=== PATIENT | male | born 1940 | race Caucasian/White ===

== ENCOUNTER → 2017-07-10 | Outpatient (CLI) | payer MEDICARE ==
[~2017-07-10] MED LIST: ASPI-496 PO; ATOR20TA9 PO; FLUT16SP NAS; FLUT50DI IH; HYDR-3138 PO; KRILL OIL PO; LEUP22.52 IM; LOSA25TA5 PO; METF500T4 PO; METO25TA35 PO; MULT-257 PO; POLY8.5P PO; SILO4CAP PO; TRAZ50TA18 PO; UBID1CAP24 PO; ZOLP5TAB6 PO; [UNRECOGNIZED DRUG - SUPPLY]
== END ==
LOC: STAR 09:28
PROVIDERS: ATTEND Urology
DX: Z02.9 Encounter for administrative examinations, unspecified (principal)

== ENCOUNTER 2017-07-15 08:00 | Emergency (ER) | payer MEDICARE ==
[~2017-07-15] VITALS: Ht 170.2 cm; Wt 74.5 kg
[2017-07-15 08:02] VITALS: BP 138/71
[2017-07-15 09:55] LABS: PATH.CAST-FLAG NOT PRESENT; SPERM-FLAG NOT PRESENT; SRC-FLAG NOT PRESENT; XTAL-FLAG NOT PRESENT; YLC-FLAG NOT PRESENT
== END 2017-07-15 10:30 | disposition home or self-care (01) ==
LOC: ED 08:34
DX: R31.0 Gross hematuria (principal); Z85.46 Personal history of malignant neoplasm of prostate
CPT/HCPCS: 81001; 87086; 99284

== ENCOUNTER 2018-07-08 09:04 | Emergency (ER) | payer MEDICARE ==
[~2018-07-08] VITALS: Ht 170.2 cm; Wt 73.3 kg
[~2018-07-08 09:04] MED LIST changes: -HYDR-3138 PO; +HYDR-3237 PO; -METF500T4 PO; +METF500T5 PO; +TRAZ-136 PO; -TRAZ50TA18 PO; -UBID1CAP24 PO; +UBID1CAP43 PO
[2018-07-08 10:07] LABS: BASOPHILS # (AUTO) 0.05 x10^3/uL (0-0.1); BASOPHILS % (AUTO) 1 % (0-1); EOSINOPHILS # (AUTO) 0.26 x10^3/uL (0-0.4); EOSINOPHILS % (AUTO) 3 % (1-7); LYMPHOCYTES # (AUTO) 1.57 x10^3/uL (1-3.4); LYMPHOCYTES % (AUTO) 17 % (22-44); MD NO; MEAN CORPUSCULAR HEMOGLOBIN 30.2 pg (27.5-34.5); MEAN CORPUSCULAR HGB CONC 33.2 g/dL (33.2-36.2); MEAN PLATELET VOLUME 8.6 fL (7.4-10.4); MONOCYTES # (AUTO) 0.57 x10^3/uL (0.2-0.8); MONOCYTES % (AUTO) 6 % (2-9); NEUTROPHILS # (AUTO) 6.83 x10^3/uL (1.8-6.8); NEUTROPHILS % (AUTO) 74 % (42-75); PLATELET COUNT 234 x10^3/uL (130-400); RED BLOOD COUNT 4.38 x10^6/uL (4.38-5.82); RED CELL DISTRIBUTION WIDTH 14.6 % (9.4-14.8)
[2018-07-08 10:14] LABS: INTERNATIONAL NORMALIZED RATIO 1.01 (0.93-1.1); PROTHROMBIN TIME 10.5 Seconds (9.6-11.5)
[2018-07-08 10:16] LABS: ALBUMIN 3.5 g/dL (3.4-5.0); ANION GAP 6 mmol/L (5-15); CALCIUM 8.7 mg/dL (8.5-10.1); CHLORIDE 108 mmol/L (98-107)
[2018-07-08 10:23] LABS: ALKALINE PHOSPHATASE 117 U/L (45-117); BILIRUBIN,TOTAL 0.5 mg/dL (0.2-1.0); CREATININE 1.39 mg/dL (0.7-1.3); TOTAL PROTEIN 7.3 g/dL (6.4-8.2); TROPONIN I < 0.015 ng/mL (0.000-0.045)
[2018-07-08 10:27] LABS: ALANINE AMINOTRANSFERASE 26 U/L (12-78)
[2018-07-08] MEDS ORDERED: METOPROLOL SUCCINATE 50 MG TAB.ER.24H PO ONE (12:00)
[2018-07-08 12:26] VITALS: BP 127/65
== END 2018-07-08 12:29 | disposition home or self-care (01) ==
LOC: ED 12:23
DX: I47.1 Supraventricular tachycardia (principal)
CPT/HCPCS: 36415; 71045; 80053; 84484; 85025; 85610; 85730; 93005; 99285

== ENCOUNTER 2018-08-05 18:54 | Inpatient (IN) | payer MEDICARE ==
[~2018-08-05] VITALS: Ht 170.2 cm; Wt 73.2 kg
[~2018-08-05 18:54] MED LIST changes: -LOSA25TA5 PO; +LOSA25TA6 PO; +METF500T17 PO; -METF500T5 PO
[2018-08-05 19:44] LABS: MEAN CORPUSCULAR HEMOGLOBIN 30.6 pg (27.5-34.5); MEAN CORPUSCULAR VOLUME 89.9 fL (81-97); MEAN PLATELET VOLUME 9.1 fL (7.4-10.4); PLATELET COUNT 203 x10^3/uL (130-400); RED BLOOD COUNT 4.83 x10^6/uL (4.38-5.82); RED CELL DISTRIBUTION WIDTH 15.2 % (9.4-14.8)
[2018-08-05 19:52] LABS: ALANINE AMINOTRANSFERASE 25 U/L (12-78); ALBUMIN 3.4 g/dL (3.4-5.0); ANION GAP 8 mmol/L (5-15); CHLORIDE 103 mmol/L (98-107); CREATININE 1.67 mg/dL (0.7-1.3)
[2018-08-05 19:55] LABS: ALKALINE PHOSPHATASE 112 U/L (45-117); BILIRUBIN,TOTAL 1.1 mg/dL (0.2-1.0); TOTAL PROTEIN 7.8 g/dL (6.4-8.2)
[2018-08-05 20:09] LABS: MD YES
[2018-08-05 20:10] LABS: BAND#(MANUAL) 1.23 x10^3/uL; BANDS%(MANUAL) 6 % (0-7); LYMPH#(MANUAL) 3.28 x10^3/uL (1-3.4); LYMPHS% (MANUAL) 16 % (22-44); MONOS#(MANUAL) 0.41 x10^3/uL (0.3-2.7); MONOS% (MANUAL) 2 % (2-9); SEG#(MANUAL) 15.58 x10^3/uL (1.8-6.8); SEGS% (MANUAL) 76 % (42-75)
[2018-08-05 20:11] LABS: <PLATELET ESTIMATE> ADEQUATE; <PLT MORPHOLOGY> NORMAL PLT MORPH; <RBC MORPHOLOGY> NORMAL
[2018-08-05] MEDS ORDERED: CEFTRIAXONE PMX 1GM/50ML 50 ML ONE (21:44)
[2018-08-05] MEDS ORDERED: CEFTRIAXONE 1,000 MG in SODIUM CHLORIDE 0.9% 50 ML IVPB ONE (22:00)
[2018-08-05] MEDS ORDERED: SODIUM CHLORIDE 0.9% 1,000ML IVBOLUS ONE (22:00)
[2018-08-05] MEDS ORDERED: ABIR250T PO (22:04)
[2018-08-05 22:27] LABS: CULTURE INDICATED? YES; MICROSCOPIC INDICATED
[2018-08-05] MEDS ORDERED: SODIUM CHLORIDE 0.9% 1,000 ML IV SCH (22:47)
[2018-08-05] MEDS ORDERED: ONDANSETRON 2MG/ML, 2ML IVPush PRN (23:00)
[2018-08-05] MEDS ORDERED: ACETAMINOPHEN 325 MG TABLET PO PRN (23:00)
[2018-08-05] MEDS ORDERED: DOCUSATE 100 MG CAPSULE PO PRN (23:00)
[2018-08-05] MEDS ORDERED: BISACODYL 10 MG SUPP PR PRN (23:00)
[2018-08-05] MEDS: TRAZODONE 50MG TABLET PO SCH (23:00)
[2018-08-05] MEDS ORDERED: CEFTRIAXONE 1,000 MG in SODIUM CHLORIDE 0.9% 50 ML IV ONE (23:00)
[2018-08-05] MEDS ORDERED: LABETALOL 5MG/ML, 20ML IVPush PRN (23:00)
[2018-08-05] MEDS ORDERED: POLYETHYLENE GLYCOL 17 GM PACKET PO PRN (23:00)
[2018-08-05] MEDS: FLUTICASONE NASAL SPRAY 16GM NAS SCH (23:00)
[2018-08-05] MEDS ORDERED: hydrALAzine 20 MG/ML, 1ML IVPush PRN (23:00)
[2018-08-05] MEDS ORDERED: PROMETHAZINE 25 MG/ML, 1ML IM PRN (23:00)
[2018-08-05] MEDS ORDERED: GABAPENTIN 300 MG CAPSULE PO PRN (23:00)
[2018-08-05] MEDS ORDERED: ONDANSETRON ODT 4 MG PO PRN (23:00)
[2018-08-05 23:18] LABS: FREE T4 (FREE THYROXINE) 1.03 ng/dL (0.76-1.46); THYROID STIMULATING HORMONE 0.883 mIU/L (0.358-3.740)
[2018-08-05] MEDS: HEPARIN 5,000 UNITS/ML, 1ML SQ SCH (23:45)
[2018-08-05] MEDS: METOPROLOL TARTRATE 25 MG TABLET PO SCH (23:45)
[2018-08-05] MEDS: ATORVASTATIN 10 MG TABLET PO SCH (23:46)
[2018-08-06 02:10] VITALS: BP 113/70
[2018-08-06 05:51] LABS: BASOPHILS # (AUTO) 0.02 x10^3/uL (0-0.1); BASOPHILS % (AUTO) 0 % (0-1); EOSINOPHILS # (AUTO) 0.06 x10^3/uL (0-0.4); EOSINOPHILS % (AUTO) 0 % (1-7); LYMPHOCYTES # (AUTO) 1.09 x10^3/uL (1-3.4); LYMPHOCYTES % (AUTO) 8 % (22-44); MD NO; MEAN CORPUSCULAR HEMOGLOBIN 30.8 pg (27.5-34.5); MEAN CORPUSCULAR HGB CONC 33.9 g/dL (33.2-36.2); MEAN CORPUSCULAR VOLUME 91.1 fL (81-97); MONOCYTES # (AUTO) 0.94 x10^3/uL (0.2-0.8); MONOCYTES % (AUTO) 7 % (2-9); NEUTROPHILS # (AUTO) 12.33 x10^3/uL (1.8-6.8); NEUTROPHILS % (AUTO) 85 % (42-75); PLATELET COUNT 143 x10^3/uL (130-400); RED BLOOD COUNT 3.81 x10^6/uL (4.38-5.82)
[2018-08-06 05:54] LABS: ALANINE AMINOTRANSFERASE 21 U/L (12-78); ALBUMIN 2.4 g/dL (3.4-5.0); ANION GAP 5 mmol/L (5-15); CALCIUM 7.8 mg/dL (8.5-10.1); CHLORIDE 110 mmol/L (98-107); CHOLESTEROL, TOTAL 78 mg/dL (140-239); CREATININE 1.66 mg/dL (0.7-1.3)
[2018-08-06 05:56] LABS: ALKALINE PHOSPHATASE 84 U/L (45-117); BILIRUBIN,TOTAL 0.7 mg/dL (0.2-1.0); CHOL/HDL RATIO 1.5; HDL CHOL % 68 % (26-37); HDL CHOLESTEROL (DIRECT) 53 mg/dL (40-60); LDL CHOLESTEROL,CALCULATED 7 mg/dL (54-169); LDL/HDL RATIO 0.1 (0.5-3.0); TOTAL PROTEIN 5.7 g/dL (6.4-8.2); TRIGLYCERIDES 89 mg/dL (50-200); VLDL CHOLESTEROL 18 mg/dL (0-25)
[2018-08-06 07:58] VITALS: BP 102/55
[2018-08-06] MEDS: MULTIVITAMIN 1 TABLET PO SCH (08:45)
[2018-08-06] MEDS: ASPIRIN 81 MG TABLET EC PO SCH (08:45)
[2018-08-06] MEDS: HEPARIN 5,000 UNITS/ML, 1ML SQ SCH ×2 (08:45→16:03)
[2018-08-06] MEDS ORDERED: POLYETHYLENE GLYCOL 17 GM PACKET PO PRN (09:00)
[2018-08-06] MEDS ORDERED: TEMPLATE NON-FORMULARY MED. (Ubidecarenone/Vit E Acetate (Co Q-10 100 Mg Softgel) 100 MG) PO SCH (09:00)
[2018-08-06] MEDS ORDERED: KRILL OIL PO SCH (09:00)
[2018-08-06] MEDS: ABIRATERONE ACETATE 1000 MG PO SCH (09:00)
[2018-08-06 12:24] VITALS: BP 86/68
[2018-08-06] MEDS: SODIUM CHLORIDE 0.9% 1,000 ML IV SCH (12:44)
[2018-08-06] MEDS: METOPROLOL TARTRATE 25 MG TABLET PO SCH ×2 (12:44→20:23)
[2018-08-06] MEDS ORDERED: ADENOSINE 6 MG/2 ML IVPush ONE (13:00)
[2018-08-06 13:02] VITALS: BP 104/65
[2018-08-06] MEDS ORDERED: ADENOSINE 6 MG/2 ML ONE (18:51)
[2018-08-06 19:20] VITALS: BP 117/61
[2018-08-06] MEDS: ATORVASTATIN 10 MG TABLET PO SCH (20:00)
[2018-08-06] MEDS: TRAZODONE 50MG TABLET PO SCH (20:01)
[2018-08-06 20:02] VITALS: BP 97/56
[2018-08-06] MEDS: FLUTICASONE NASAL SPRAY 16GM NAS SCH (20:06)
[2018-08-06] MEDS: CEFTRIAXONE 2 GM in SODIUM CHLORIDE 0.9% 50 ML IV SCH (20:07)
[2018-08-06] MEDS ORDERED: CALCIUM CARBONATE 500 MG TAB.CHEW PO ONE (23:00)
[2018-08-07] MEDS: HEPARIN 5,000 UNITS/ML, 1ML SQ SCH ×3 (00:01→17:07)
[2018-08-07 00:56] VITALS: BP 112/65
[2018-08-07] MEDS: SODIUM CHLORIDE 0.9% 1,000 ML IV SCH (05:34)
[2018-08-07 07:17] LABS: ANION GAP 7 mmol/L (5-15); CALCIUM 8.1 mg/dL (8.5-10.1); CHLORIDE 109 mmol/L (98-107); CREATININE 1.48 mg/dL (0.7-1.3)
[2018-08-07] MEDS: ABIRATERONE ACETATE 1000 MG PO SCH (07:41)
[2018-08-07] MEDS: METOPROLOL TARTRATE 25 MG TABLET PO SCH ×2 (07:41→21:23)
[2018-08-07] MEDS: ASPIRIN 81 MG TABLET EC PO SCH (07:41)
[2018-08-07] MEDS: MULTIVITAMIN 1 TABLET PO SCH (07:41)
[2018-08-07 07:47] VITALS: BP 109/67
[2018-08-07 07:47] LABS: BASOPHILS # (AUTO) 0.05 x10^3/uL (0-0.1); BASOPHILS % (AUTO) 1 % (0-1); EOSINOPHILS # (AUTO) 0.12 x10^3/uL (0-0.4); EOSINOPHILS % (AUTO) 2 % (1-7); LYMPHOCYTES # (AUTO) 0.59 x10^3/uL (1-3.4); LYMPHOCYTES % (AUTO) 8 % (22-44); MD NO; MEAN CORPUSCULAR HEMOGLOBIN 30.1 pg (27.5-34.5); MEAN CORPUSCULAR HGB CONC 33.5 g/dL (33.2-36.2); MEAN CORPUSCULAR VOLUME 89.7 fL (81-97); MEAN PLATELET VOLUME 9.9 fL (7.4-10.4); MONOCYTES # (AUTO) 0.43 x10^3/uL (0.2-0.8); MONOCYTES % (AUTO) 6 % (2-9); NEUTROPHILS # (AUTO) 5.84 x10^3/uL (1.8-6.8); NEUTROPHILS % (AUTO) 83 % (42-75); PLATELET COUNT 117 x10^3/uL (130-400); RED BLOOD COUNT 3.54 x10^6/uL (4.38-5.82)
[2018-08-07] MEDS ORDERED: POTASSIUM CHLORIDE 20 MEQ TAB.ER.PRT PO ONE (08:30)
[2018-08-07 13:38] VITALS: BP 99/61
[2018-08-07 20:00] VITALS: BP 98/55
[2018-08-07] MEDS: CEFTRIAXONE 2 GM in SODIUM CHLORIDE 0.9% 50 ML IV SCH (21:19)
[2018-08-07] MEDS: FLUTICASONE NASAL SPRAY 16GM NAS SCH (21:22)
[2018-08-07] MEDS: ATORVASTATIN 10 MG TABLET PO SCH (21:23)
[2018-08-07] MEDS: TRAZODONE 50MG TABLET PO SCH (21:23)
[2018-08-08 01:30] VITALS: BP 109/61
[2018-08-08] MEDS: HEPARIN 5,000 UNITS/ML, 1ML SQ SCH ×3 (01:42→18:26)
[2018-08-08] MEDS: TEMPLATE NON-FORMULARY MED. (Abiraterone Acetate** (Zytiga**) 1,000 MG) PO SCH (06:02)
[2018-08-08 06:52] VITALS: BP 139/70
[2018-08-08] MEDS ORDERED: POTASSIUM PHOSPHATE 44 MEQ in SODIUM CHLORIDE 0.9% 500 ML IV ONE (08:00)
[2018-08-08 08:21] VITALS: BP 123/74
[2018-08-08 09:07] LABS: ANION GAP 11 mmol/L (5-15); CALCIUM 8.7 mg/dL (8.5-10.1); CHLORIDE 111 mmol/L (98-107); CREATININE 1.43 mg/dL (0.7-1.3)
[2018-08-08] MEDS: MULTIVITAMIN 1 TABLET PO SCH (09:17)
[2018-08-08] MEDS: ASPIRIN 81 MG TABLET EC PO SCH (09:17)
[2018-08-08] MEDS: METOPROLOL TARTRATE 25 MG TABLET PO SCH ×2 (09:18→20:18)
[2018-08-08 09:19] VITALS: BP 125/57
[2018-08-08 13:30] VITALS: BP 111/65
[2018-08-08] MEDS: TRAZODONE 50MG TABLET PO SCH (20:18)
[2018-08-08] MEDS: ATORVASTATIN 10 MG TABLET PO SCH (20:18)
[2018-08-08] MEDS: FLUTICASONE NASAL SPRAY 16GM NAS SCH (20:24)
[2018-08-08] MEDS: CEFTRIAXONE 2 GM in SODIUM CHLORIDE 0.9% 50 ML IV SCH (21:46)
[2018-08-09 01:00] VITALS: BP 115/68
[2018-08-09 05:41] LABS: BASOPHILS # (AUTO) 0.01 x10^3/uL (0-0.1); BASOPHILS % (AUTO) 0 % (0-1); EOSINOPHILS # (AUTO) 0.05 x10^3/uL (0-0.4); EOSINOPHILS % (AUTO) 1 % (1-7); LYMPHOCYTES # (AUTO) 0.99 x10^3/uL (1-3.4); LYMPHOCYTES % (AUTO) 20 % (22-44); MD NO; MEAN CORPUSCULAR HEMOGLOBIN 30.4 pg (27.5-34.5); MEAN CORPUSCULAR HGB CONC 33.6 g/dL (33.2-36.2); MEAN CORPUSCULAR VOLUME 90.5 fL (81-97); MEAN PLATELET VOLUME 9.4 fL (7.4-10.4); MONOCYTES # (AUTO) 0.29 x10^3/uL (0.2-0.8); MONOCYTES % (AUTO) 6 % (2-9); NEUTROPHILS % (AUTO) 73 % (42-75); PLATELET COUNT 133 x10^3/uL (130-400); RED BLOOD COUNT 3.34 x10^6/uL (4.38-5.82); RED CELL DISTRIBUTION WIDTH 14.9 % (9.4-14.8)
[2018-08-09 05:59] LABS: ANION GAP 10 mmol/L (5-15); CALCIUM 8.1 mg/dL (8.5-10.1); CHLORIDE 113 mmol/L (98-107); CREATININE 1.27 mg/dL (0.7-1.3)
[2018-08-09] MEDS: TEMPLATE NON-FORMULARY MED. (Abiraterone Acetate** (Zytiga**) 1,000 MG) PO SCH (06:30)
[2018-08-09 07:56] VITALS: BP 137/69
[2018-08-09] MEDS: HEPARIN 5,000 UNITS/ML, 1ML SQ SCH ×2 (08:15)
[2018-08-09] MEDS: MULTIVITAMIN 1 TABLET PO SCH (08:15)
[2018-08-09] MEDS: METOPROLOL TARTRATE 25 MG TABLET PO SCH (08:15)
[2018-08-09] MEDS: ASPIRIN 81 MG TABLET EC PO SCH (08:15)
[2018-08-09] MEDS ORDERED: CEFT2FRO2 IV (12:26)
[2018-08-09] MEDS ORDERED: LIDOCAINE-MPF 2%, 2ML ONE (12:36)
[2018-08-09] MEDS ORDERED: FENTANYL PF 100 MCG/2ML ONE (13:28)
== END 2018-08-09 15:05 | disposition home or self-care (01) | DRG 871 ==
LOC: ED 22:24 → EDIP 23:10 → 3NE 23:11 → 5SO 08-06 12:54 → DCLOUNGE 08-09 14:46
PROVIDERS: ADMIT Internal Medicine; ATTEND Internal Medicine
PROC: 02HV33Z Insertion of Infusion Device into Superior Vena Cava, Percutaneous Approach (ICD-10-PCS; principal; 2018-08-09)
PROC: B5181ZA Fluoroscopy of Superior Vena Cava using Low Osmolar Contrast, Guidance (ICD-10-PCS; 2018-08-09)
PROC: B548ZZA Ultrasonography of Superior Vena Cava, Guidance (ICD-10-PCS; 2018-08-09)
PROC: 0T25X0Z Change Drainage Device in Kidney, External Approach (ICD-10-PCS; 2018-08-09)
DX: A41.9 Sepsis, unspecified organism (principal); N17.0 Acute kidney failure with tubular necrosis; I47.1 Supraventricular tachycardia; N39.0 Urinary tract infection, site not specified; B96.1 Klebsiella pneumoniae [K. pneumoniae] as the cause of diseases classified elsewhere; E78.5 Hyperlipidemia, unspecified; E83.39 Other disorders of phosphorus metabolism; E87.6 Hypokalemia; I12.9 Hypertensive chronic kidney disease with stage 1 through stage 4 chronic kidney disease, or unspecified chronic kidney disease; N18.3 Chronic kidney disease, stage 3 (moderate); N35.8 Other urethral stricture; N40.0 Benign prostatic hyperplasia without lower urinary tract symptoms; R29.6 Repeated falls; R65.20 Severe sepsis without septic shock; Z87.442 Personal history of urinary calculi; C61 Malignant neoplasm of prostate; Z90.79 Acquired absence of other genital organ(s); Z92.3 Personal history of irradiation; Z95.1 Presence of aortocoronary bypass graft; Z79.82 Long term (current) use of aspirin; Z79.899 Other long term (current) drug therapy
CPT/HCPCS: 36415; 36569; 50435; 76770; 76937; 77001; 80048; 80053; 80061; 81001; 83036; 83605; 83735; 84100; 84145; 84439; 84443; 85025; 87040; 87077; 87086; 87186; 93005; 93306; 96361; 96365; G0378; J0153; J0696; J1644; J3010; J3490; Q0162; C1729; C1751; C1769; J7030; J7040; J7512

== ENCOUNTER 2020-07-02 14:55 | Emergency (ER) | payer MEDICARE ==
[~2020-07-02] VITALS: Ht 170.2 cm; Wt 69.3 kg
[~2020-07-02 14:55] MED LIST changes: +ABIR250T PO; +ATOR20TA37 PO; -ATOR20TA9 PO; +CEFT2FRO2 IV; -FLUT16SP NAS; +FLUT16SP24 NAS; +LOSA25TA25 PO; -LOSA25TA6 PO; -TRAZ-136 PO; +TRAZ50TA66 PO
--- NOTE | 2020-07-02 15:36 | NUR ---
UTILITY LOCATOR: PT TO ROOM FROM LOBBY
[2020-07-02] MEDS ORDERED: SODIUM CHLORIDE FLUSH 10ML SYR IVF ONE (17:00)
[2020-07-02 17:05] LABS: BASOPHILS # (AUTO) 0.05 x10^3/uL (0-0.1); BASOPHILS % (AUTO) 1 % (0-1); EOSINOPHILS # (AUTO) 0.24 x10^3/uL (0-0.4); EOSINOPHILS % (AUTO) 3 % (1-7); LYMPHOCYTES # (AUTO) 2.05 x10^3/uL (1-3.4); LYMPHOCYTES % (AUTO) 22 % (22-44); MD NO; MEAN CORPUSCULAR HEMOGLOBIN 29.9 pg (27.5-34.5); MEAN CORPUSCULAR HGB CONC 33.1 g/dL (33.2-36.2); MEAN CORPUSCULAR VOLUME 90.5 fL (81-97); MEAN PLATELET VOLUME 8.8 fL (7.4-10.4); MONOCYTES # (AUTO) 0.58 x10^3/uL (0.2-0.8); MONOCYTES % (AUTO) 6 % (2-9); NEUTROPHILS # (AUTO) 6.32 x10^3/uL (1.8-6.8); NEUTROPHILS % (AUTO) 69 % (42-75); PLATELET COUNT 255 x10^3/uL (130-400); RED BLOOD COUNT 4.78 x10^6/uL (4.38-5.82); RED CELL DISTRIBUTION WIDTH 14.8 % (9.4-14.8)
[2020-07-02 17:11] LABS: ALANINE AMINOTRANSFERASE 23 U/L (12-78); ANION GAP 3 mmol/L (5-15); CALCIUM 9.2 mg/dL (8.5-10.1); CHLORIDE 106 mmol/L (98-107)
[2020-07-02 17:13] LABS: CREATININE 1.36 mg/dL (0.7-1.3)
[2020-07-02 17:14] LABS: ALKALINE PHOSPHATASE 124 U/L (45-117); BILIRUBIN,TOTAL 0.3 mg/dL (0.2-1.0); TOTAL PROTEIN 7.9 g/dL (6.4-8.2)
--- NOTE | 2020-07-02 17:20 | NUR ---
PIV PLACED FOR CT.
[2020-07-02] MEDS ORDERED: SODIUM CHLORIDE 0.9% 1,000ML IVBOLUS ONE (17:30)
[2020-07-02] MEDS ORDERED: OMNIPAQUE 350 MG/ML, 100ML BOTTLE ONE (18:06)
--- NOTE | 2020-07-02 18:45 | NUR ---
ALL RESULTS ARE BACK AT THIS TIME. CHART UP FOR RECHECK.
[2020-07-02 20:03] VITALS: BP 128/67
== END 2020-07-02 20:05 | disposition home or self-care (01) ==
LOC: ED 15:48
DX: C80.1 Malignant (primary) neoplasm, unspecified (principal); K59.00 Constipation, unspecified; R10.84 Generalized abdominal pain; R11.2 Nausea with vomiting, unspecified; I25.10 Atherosclerotic heart disease of native coronary artery without angina pectoris
CPT/HCPCS: 36415; 74177; 80053; 85025; 96360; 99285; J7030; Q9967

== ENCOUNTER 2020-08-06 11:23 | Emergency (ER) | payer MEDICARE ==
[~2020-08-06] VITALS: Ht 170.2 cm; Wt 68.9 kg
[2020-08-06 11:32] VITALS: BP 144/93
--- NOTE | 2020-08-06 12:01 | NUR ---
First contact with pt. Michael HAMM at bedside to evaluate pt. Pt reports that last Sunday (10 days ago) he had a chemo infusion to treat his prostate CA. Pt reports no pain at infusion site in L AC during the infusion or that night, reports he woke up Sunday and noticed red, painful skin on L AC. Pt reports no rashes anywhere else, no other complaints.
[2020-08-06 12:23] LABS: MEAN CORPUSCULAR HEMOGLOBIN 29.8 pg (27.5-34.5); MEAN CORPUSCULAR HGB CONC 32.9 g/dL (33.2-36.2); MEAN CORPUSCULAR VOLUME 90.6 fL (81-97); MEAN PLATELET VOLUME 8.8 fL (7.4-10.4); PLATELET COUNT 227 x10^3/uL (130-400); RED BLOOD COUNT 4.03 x10^6/uL (4.38-5.82); RED CELL DISTRIBUTION WIDTH 14.4 % (9.4-14.8)
[2020-08-06 12:30] LABS: ALBUMIN 3.1 g/dL (3.4-5.0); ANION GAP 5 mmol/L (5-15); CHLORIDE 107 mmol/L (98-107); CREATININE 1.21 mg/dL (0.7-1.3)
[2020-08-06 12:39] LABS: BASOPHILS # (AUTO) 0.03 x10^3/uL (0-0.1); BASOPHILS % (AUTO) 1 % (0-1); EOSINOPHILS # (AUTO) 0.04 x10^3/uL (0-0.4); EOSINOPHILS % (AUTO) 2 % (1-7); LYMPHOCYTES # (AUTO) 1.17 x10^3/uL (1-3.4); LYMPHOCYTES % (AUTO) 43 % (22-44); MD SCAN; MONOCYTES # (AUTO) 0.23 x10^3/uL (0.2-0.8); MONOCYTES % (AUTO) 8 % (2-9); NEUTROPHILS # (AUTO) 1.26 x10^3/uL (1.8-6.8); NEUTROPHILS % (AUTO) 46 % (42-75)
== END 2020-08-06 14:17 | disposition home or self-care (01) ==
LOC: ED 12:20
DX: L03.114 Cellulitis of left upper limb (principal); M25.522 Pain in left elbow; I25.10 Atherosclerotic heart disease of native coronary artery without angina pectoris; Z85.46 Personal history of malignant neoplasm of prostate; Z90.89 Acquired absence of other organs
CPT/HCPCS: 36415; 80048; 82040; 85025; 99284

== ENCOUNTER 2020-08-12 10:55 | Emergency (ER) | payer MEDICARE ==
[~2020-08-12] VITALS: Ht 170.2 cm; Wt 68.6 kg
[2020-08-12 11:29] VITALS: BP 106/82
[2020-08-12 11:57] LABS: MEAN CORPUSCULAR HEMOGLOBIN 29.5 pg (27.5-34.5); MEAN CORPUSCULAR HGB CONC 32.3 g/dL (33.2-36.2); MEAN CORPUSCULAR VOLUME 91.2 fL (81-97); MEAN PLATELET VOLUME 8.1 fL (7.4-10.4); PLATELET COUNT 244 x10^3/uL (130-400); RED BLOOD COUNT 4.38 x10^6/uL (4.38-5.82); RED CELL DISTRIBUTION WIDTH 14.4 % (9.4-14.8)
[2020-08-12 12:08] LABS: ALBUMIN 3.5 g/dL (3.4-5.0); ANION GAP 4 mmol/L (5-15); CALCIUM 9.4 mg/dL (8.5-10.1); CHLORIDE 111 mmol/L (98-107)
[2020-08-12 12:13] LABS: ALANINE AMINOTRANSFERASE 16 U/L (12-78); ALKALINE PHOSPHATASE 117 U/L (45-117); BILIRUBIN,TOTAL 0.3 mg/dL (0.2-1.0); CREATININE 1.28 mg/dL (0.7-1.3); TOTAL PROTEIN 7.4 g/dL (6.4-8.2)
--- NOTE | 2020-08-12 12:17 | NUR ---
DAIRY EQUIPMENT SPECIALIST: DYE MIXER LAVERNE ATTEMPT TO SPEAK WITH PT. PT HAD ALREADY LEFT.
[2020-08-12 12:31] LABS: BASOPHILS # (AUTO) 0.09 x10^3/uL (0-0.1); BASOPHILS % (AUTO) 3 % (0-1); EOSINOPHILS # (AUTO) 0.07 x10^3/uL (0-0.4); EOSINOPHILS % (AUTO) 3 % (1-7); LYMPHOCYTES # (AUTO) 1.25 x10^3/uL (1-3.4); LYMPHOCYTES % (AUTO) 45 % (22-44); MD SCAN; MONOCYTES # (AUTO) 0.53 x10^3/uL (0.2-0.8); MONOCYTES % (AUTO) 19 % (2-9); NEUTROPHILS # (AUTO) 0.83 x10^3/uL (1.8-6.8); NEUTROPHILS % (AUTO) 30 % (42-75)
--- NOTE | 2020-08-12 12:35 | NUR ---
BLANKET INSPECTOR: PT SIGNED AMA FORM AT [id number]
== END 2020-08-12 12:36 | disposition left against medical advice (07) ==
LOC: ED 12:14
DX: R21 Rash and other nonspecific skin eruption (principal)
CPT/HCPCS: 36415; 80053; 85025; 99283